=== PATIENT | female | born 1995 | race Caucasian/White ===

== ENCOUNTER → 2019-02-21 | Outpatient (REF) | payer BC | LOC: M LAB LCGH 12:50 | PROVIDERS: ATTEND Obstetrics & Gynecology | DX: Z12.4 Encounter for screening for malignant neoplasm of cervix (principal) ==

== ENCOUNTER → 2019-08-20 | Outpatient (REF) | payer BC | LOC: M LAB REF 18:39 | PROVIDERS: ATTEND Dermatology | DX: D48.9 Neoplasm of uncertain behavior, unspecified (principal) ==

== ENCOUNTER → 2019-09-12 | Outpatient (CLI) | payer BC ==
[2019-09-12 15:17] LABS: HEMOGLOBIN 13.2 g/dl (12.0-15.5); MEAN CORPUSCULAR HEMOGLOBIN 29.6 pg (27.0-33.0); MEAN CORPUSCULAR HGB CONC 32.2 g/dl (32.0-36.5); MEAN CORPUSCULAR VOLUME 91.9 fl (80.0-96.0); PLATELET COUNT, AUTOMATED 225 10^3/uL (150-450); RED BLOOD COUNT 4.46 10^6/uL (4.00-5.40); WHITE BLOOD COUNT 6.7 10^3/uL (4.0-10.0)
[2019-09-12 15:51] LABS: ALT/SGPT 18 U/L (12-78); BILIRUBIN,TOTAL 0.2 MG/DL (0.2-1.0); BLOOD UREA NITROGEN 13 MG/DL (7-18); CARBON DIOXIDE LEVEL 29 MEQ/L (21-32); CHLORIDE LEVEL 108 MEQ/L (98-107); CREATININE FOR GFR 0.67 MG/DL (0.55-1.30); FREE T4 0.94 NG/DL (0.76-1.46); GLOMERULAR FILTRATION RATE > 60.0 (>60); GLUCOSE, FASTING 80 MG/DL (70-100); IMMUNOGLOBULIN G 976 MG/DL (681-1648); POTASSIUM SERUM 3.8 MEQ/L (3.5-5.1); SODIUM LEVEL 140 MEQ/L (136-145); TOTAL PROTEIN 7.3 GM/DL (6.4-8.2)
== END ==
LOC: M LAB 14:11
PROVIDERS: ATTEND Dermatology
DX: B35.8 Other dermatophytoses (principal)

== ENCOUNTER 2020-01-21 20:23 | Emergency (ER) | payer BC ==
[~2020-01-21] VITALS: Ht 170.2 cm; Wt 65.2 kg
[2020-01-21] MEDS ORDERED: NS 1,000 ML IV ONE (21:00)
[2020-01-21] MEDS ORDERED: ONDANSETRON 4MG/2ML VIAL IV ONE (21:00)
[2020-01-21 21:23] LABS: BASO % 0.1 % (0.0-1.0); EOS # 0.1 10^3/uL (0.0-0.5); EOS % 0.4 % (0.0-3.0); HEMATOCRIT 36.3 % (36.0-47.0); HEMOGLOBIN 12.1 g/dl (12.0-15.5); LYMPH # 0.7 10^3/uL (1.5-5.0); LYMPH % 6.6 % (24.0-44.0); MEAN CORPUSCULAR HEMOGLOBIN 29.7 pg (27.0-33.0); MEAN CORPUSCULAR HGB CONC 33.3 g/dl (32.0-36.5); MONO # 0.5 10^3/uL (0.0-0.8); MONO % 4.4 % (0.0-5.0); NEUTROPHILS # 9.8 10^3/uL (1.5-8.5); NEUTROPHILS % 88.1 % (36.0-66.0); PLATELET COUNT, AUTOMATED 206 10^3/uL (150-450); RED BLOOD COUNT 4.08 10^6/uL (4.00-5.40); WHITE BLOOD COUNT 11.2 10^3/uL (4.0-10.0)
[2020-01-21 21:33] LABS: APPEARANCE, URINE TURBID (CLEAR); BACTERIA, URINE AUTO 2+ (NEGATIVE); BILIRUBIN, URINE AUTO NEGATIVE (NEGATIVE); BLOOD, URINE BLOOD 2+ (NEGATIVE); COLOR, URINE YELLOW (YELLOW); GLUCOSE, URINE (UA) AUTO NEGATIVE (NEGATIVE); KETONE, URINE AUTO NEGATIVE (NEGATIVE); LEUKOCYTE ESTERASE, URINE AUTO 3+ (NEGATIVE); NITRITE, URINE AUTO POSITIVE (NEGATIVE); PROTEIN, URINE AUTO 2+ mg/dL (NEGATIVE); RBC, URINE AUTO 143 /HPF (0-3); SPECIFIC GRAVITY URINE AUTO 1.015 (1.002-1.035); UROBILINOGEN, URINE AUTO 0.2 mg/dL (0.0-2.0); WBC, URINE AUTO TNTC /HPF (0-3)
[2020-01-21] MEDS ORDERED: ACETAMINOPHEN 325 MG TAB PO ONE (22:00)
[2020-01-21 22:18] LABS: BLOOD UREA NITROGEN 7 MG/DL (7-18); CALCIUM LEVEL 8.2 MG/DL (8.5-10.1); CARBON DIOXIDE LEVEL 19 MEQ/L (21-32); CHLORIDE LEVEL 110 MEQ/L (98-107); CREATININE FOR GFR 0.72 MG/DL (0.55-1.30); GLOMERULAR FILTRATION RATE > 60.0 (>60); GLUCOSE, FASTING 89 MG/DL (70-100); HCG, SERUM QUANTITATIVE 8920 MIU/ML; POTASSIUM SERUM 4.2 MEQ/L (3.5-5.1); SODIUM LEVEL 138 MEQ/L (136-145)
[2020-01-21 22:46] VITALS: BP 105/63
--- NOTE | 2020-01-21 22:51 | REPVR ---
PROCEDURE INFORMATION: Exam: US Duplex Artery and Vein of the Abdominal and/or Reproductive Organs, Complete Exam date and time: 01/21/2020 10:26 PM Age: 24 years old Clinical indication: Lmp or gestational age (in weeks): Lmp 12/21/19; Antepartum complications; Bleeding; complicated by abdominal or pelvic pain; Lower; First trimester; ; Additional info: Vaginal bleeding TECHNIQUE: Imaging protocol: Real-time duplex ultrasound scan of the arterial and venous flow of the abdominal and/or reproductive organs with B-mode, color Doppler flow and spectral waveform analysis with image documentation. Exam focused on the region of clinical concern. Complete exam. Duplex images required to evaluate vascular conditions. COMPARISON: No relevant prior studies available. FINDINGS: Arterial and venous waveforms are present within the right and left ovaries on duplex color spectral Doppler analysis. IMPRESSION: Normal vascular waveforms within the ovaries. No evidence of ovarian torsion. PROCEDURE INFORMATION: Exam: US First Trimester, Transabdominal and US , Transvaginal Exam date and time: 01/21/2020 10:26 PM Age: 24 years old Clinical indication: Lmp or gestational age (in weeks): Lmp 12/21/19; Antepartum complications; Bleeding; complicated by abdominal or pelvic pain; Lower; First trimester; ; Additional info: Vaginal bleeding TECHNIQUE: Imaging protocol: Real-time transabdominal obstetrical ultrasound of the maternal pelvis and a first trimester , less than 14 weeks 0 days, with image documentation. Transvaginal imaging was used for better evaluation of the fetus and adnexa. COMPARISON: No relevant prior studies available. FINDINGS: Gestation: Single intrauterine gestational sac with mean sac diameter of 0.66 cm, correlating with an estimated gestational age of 5 weeks and 3 days. pole is present measuring 0.3 cm, correlating with an estimated gestational age of 5 weeks and 6 days. No motion identified no heart rate detected. MATERNAL: Uterus: The uterus measures 10.8 x 4.8 x 6.4 cm. Endometrium measures 2.2 cm in thickness. Possible echogenic clots within the endometrial cavity. Cervix: Unremarkable. Right adnexa: The right ovary measures 2.2 x 3.8 x 2.6 cm. Normal echogenicity. Normal color flow. Left adnexa: The left ovary measures 2.1 x 3.3 x 1.5 cm. Normal echogenicity. Normal color flow. Intraperitoneal: No intraperitoneal free fluid. IMPRESSION: 1. Single intrauterine gestation with estimated gestational age of 5 weeks and 6 days (based on pole size). No movement or heart rate detected. Recommend continued short-term follow-up and correlation with beta HCGs at the discretion of gynecology. 2. Thickened endometrium, possibly with endometrial cavity blood clots. Electronically signed by: Matthew Farias On 01/21/2020 22:50:44 PM
[2020-01-21] MEDS ORDERED: CIPROFLOXACIN 500MG TABLET PO ONE (23:15)
[2020-01-21] MEDS ORDERED: CIPR-249 PO (23:17)
== END 2020-01-21 23:39 | disposition home or self-care (01) ==
LOC: M ED 20:23
DX: O04.89 (Induced) termination of pregnancy with other complications (principal); N39.0 Urinary tract infection, site not specified; R50.9 Fever, unspecified; Z88.0 Allergy status to penicillin; Z91.030 Bee allergy status
CPT/HCPCS: 76801; 76817; 80048; 81001; 84702; 85025; 86850; 86900; 86901; 87088; 87186; 93976; 96361; 96374; 99283; J2405

== ENCOUNTER 2020-02-14 22:59 | Emergency (ER) | payer BC ==
[~2020-02-14] VITALS: Ht 170.2 cm; Wt 63.6 kg
[~2020-02-14 22:59] MED LIST: CIPR-249 PO
[2020-02-14 23:31] LABS: BASO % 0.2 % (0.0-1.0); EOS # 0.1 10^3/uL (0.0-0.5); HEMATOCRIT 33.5 % (36.0-47.0); LYMPH # 2.9 10^3/uL (1.5-5.0); LYMPH % 29.6 % (24.0-44.0); MEAN CORPUSCULAR HEMOGLOBIN 29.8 pg (27.0-33.0); MEAN CORPUSCULAR HGB CONC 32.8 g/dl (32.0-36.5); MEAN CORPUSCULAR VOLUME 90.8 fl (80.0-96.0); MONO # 0.5 10^3/uL (0.0-0.8); MONO % 5.5 % (0.0-5.0); NEUTROPHILS # 6.1 10^3/uL (1.5-8.5); NEUTROPHILS % 63.4 % (36.0-66.0); RED BLOOD COUNT 3.69 10^6/uL (4.00-5.40); WHITE BLOOD COUNT 9.7 10^3/uL (4.0-10.0)
[2020-02-14] MEDS ORDERED: Oral birth control PO (23:46)
[2020-02-15 00:01] LABS: HCG, SERUM QUALITATIVE POSITIVE (NEGATIVE)
--- NOTE | 2020-02-15 01:13 | REPVR ---
PROCEDURE INFORMATION: Exam: US First Trimester, Transabdominal and US , Transvaginal Exam date and time: 02/15/2020 12:22 AM Age: 24 years old Clinical indication: Pain; Other: Vag bleeding; Additional info: Patient [facility] Now with heavy bleeding. TECHNIQUE: Imaging protocol: Real-time transabdominal obstetrical ultrasound of the maternal pelvis and a first trimester , less than 14 weeks 0 days, with image documentation. Transvaginal imaging was used for better evaluation of the fetus and adnexa. COMPARISON: 1ST TRIMESTER US 01/21/2020 10:14 PM FINDINGS: Gestation: No normal intrauterine gestational sac. Heterogeneous hypoechoic collection in the endometrial canal measuring 9 x 5 x 7 mm. No pole is seen. There is hypervascularity in the endometrial stripe. Heart rate: No heartbeat. Placenta: Not visualized. Amniotic fluid: Not visualized. BIOMETRY: Estimated gestational age: Not measurable. MATERNAL: Uterus: Uterus measures 7.3 x 3.9 x 4.9 cm. Endometrial stripe measures 12 mm in thickness. No uterine masses. Cervix: Unremarkable. Right adnexa: Right ovary measures 2.0 x 1.8 x 1.9 cm. Normal vascular flow. No masses. Left adnexa: Left ovary measures 1.4 x 1.3 x 1.6 cm. Normal vascular flow. No masses. Intraperitoneal space: Trace free fluid in the pelvis. Maternal urinary bladder: Maternal bladder is unremarkable. IMPRESSION: 1. No normal intrauterine gestational sac. 2. Findings diagnostic of failed when correlating with prior OB ultrasound. 3. Heterogeneous hypoechoic collection in the endometrial canal. Possible hemorrhage or retained products of conception. Electronically signed by: Cindy Diez On 02/15/2020 01:13:27 AM
[2020-02-15] MEDS ORDERED: METHYLERGONOVINE MALEATE 0.2 MG TAB PO ONE (01:45)
[2020-02-15] MEDS ORDERED: METH0.2T53 PO (03:11)
[2020-02-15 03:30] VITALS: BP 119/67
== END 2020-02-15 03:41 | disposition home or self-care (01) ==
LOC: M ED 22:59
DX: N93.8 Other specified abnormal uterine and vaginal bleeding (principal); Z79.3 Long term (current) use of hormonal contraceptives; Z88.0 Allergy status to penicillin; Z91.030 Bee allergy status

== ENCOUNTER → 2020-09-06 | Outpatient (CLI) | payer BC ==
[~2020-09-06] MED LIST changes: +METH0.2T53 PO; +Oral birth control PO
--- NOTE | 2020-09-06 10:44 | REP ---
INDICATION: PAIN IN RIGHT ANKLE AND JOINTS OF RT FOOT COMPARISON: None. TECHNIQUE: Four views right foot obtained. FINDINGS: There is no evidence of acute fracture, dislocation, or intrinsic bone disease.The joint spaces appear normal. IMPRESSION: Negative right foot series. <Electronically signed by Manas Felix > 09/06/20 [id number]
== END ==
LOC: M RAD 10:05
PROVIDERS: ATTEND Physician Assistant
DX: M25.571 Pain in right ankle and joints of right foot (principal)

== ENCOUNTER → 2023-10-24 | Outpatient (REF) | payer BC | LOC: M SFHCDERM 14:01 | PROVIDERS: ATTEND Physician Assistant | DX: L72.9 Follicular cyst of the skin and subcutaneous tissue, unspecified (principal) ==